=== PATIENT | female | born 1945 | race African-American/Black ===

== ENCOUNTER → 2017-01-01 | Outpatient (CLI) | payer OTHER ==
--- NOTE | 2017-01-01 17:39 | RAD ---
DATE: 01/01/2017 EXAM: DIGITAL SCREEN BILAT W/CAD HISTORY: Screening study. COMPARISON: 12/31/2015 This study was interpreted with the benefit of Computerized Aided Detection (CAD). FINDINGS: Digital MLO and CC mammograms of both breasts were obtained. Comparison study is dated 12/31/2015. The breast parenchyma is composed of scattered fibroglandular densities which can obscure a lesion on mammography (breast density code B). No spiculated mass is seen. No malignant appearing calcification or area of architectural distortion is noted. Benign-appearing calcifications are seen in both breasts. Since the previous examination there has been no significant interval change. IMPRESSION: BI-RADS Category 1, negative. There is no mammographic evidence of malignancy. Routine yearly screening mammography is recommended for follow-up. BI-RADS CATEGORY: 1 NEGATIVE RECOMMENDED FOLLOW-UP: 12M 12 MONTH FOLLOW-UP PQRS compliance statement: Patient information was entered into a reminder system with a target due date 01/01/2018 for the next mammogram. Mammography is a sensitive method for finding small breast cancers, but it does not detect them all and is not a substitute for careful clinical examination. A negative mammogram does not negate a clinically suspicious finding and should not result in delay in biopsying a clinically suspicious abnormality. "Our facility is accredited by the [employer] Mammography [employer]."
== END | disposition home or self-care (01) ==
LOC: MAMMO 10:15
PROVIDERS: ATTEND Internal Medicine
DX: Z12.31 Encounter for screening mammogram for malignant neoplasm of breast (principal)
CPT/HCPCS: G0202; 77067

== ENCOUNTER → 2018-01-10 | Outpatient (CLI) | payer OTHER | END | disposition home or self-care (01) | LOC: MAMMO 09:30 | DX: Z12.31 Encounter for screening mammogram for malignant neoplasm of breast (principal) | CPT/HCPCS: 77063; 77067 ==

== ENCOUNTER → 2018-03-04 | Outpatient (CLI) | payer OTHER ==
--- NOTE | 2018-03-04 13:02 | KCIC ---
03/04/2018 Ankle brachial indices. Bilateral lower extremity arterial duplex ultrasound INDICATION: Claudication, hypertension, right lower extremity paresthesias. COMPARISON STUDY: None FINDINGS: Blood pressure measurements were obtained. The brachial arteries and ankles bilaterally. Right brachial pressure: 145 mmHg Left brachial pressure: 133 mmHg Right ankle pressure: 144 mmHg Left ankle pressure: 149 mmHg Right ankle brachial index: 0.99 (normal) Left ankle-brachial index: 1.02 (normal) Sonographic evaluation of bilateral lower extremity major arteries is performed including color Doppler imaging spectral analysis. Minimal nonspecific blunting of waveforms is seen throughout the exam. No focal elevation of velocity suggestive of a high-grade hemodynamically significant stenosis is identified involving either lower [place]. No high-grade stenoses are identified on color Doppler imaging. IMPRESSION: 1. Normal ankle-brachial indices 2. No definitive sonographic evidence of hemodynamically significant stenosis involving the major arteries of the bilateral lower extremities Electronically signed by: Sukhwinder Fajardo MD (03/04/2018 12:58 PM) [id number]
== END | disposition home or self-care (01) ==
LOC: KCIC US 09:53
PROVIDERS: ATTEND Internal Medicine
DX: I73.9 Peripheral vascular disease, unspecified (principal); I10 Essential (primary) hypertension; R20.2 Paresthesia of skin
CPT/HCPCS: 93922; 93925

== ENCOUNTER → 2019-01-13 | Outpatient (CLI) | payer OTHER ==
--- NOTE | 2019-01-15 09:12 | RAD ---
DATE: 01/13/2019 12:30 PM EXAM: MAMMO YAZAN SCREENING BILATERAL HISTORY: routine screening evaluation. COMPARISON: 11/28/2013 Bilateral CC and MLO views of the breasts were performed. Bilateral breast tomosynthesis was performed in CC and MLO projections. This study was interpreted with the benefit of Computerized Aided Detection (CAD). Breast Density: The breast parenchyma shows scattered fibroglandular densities. Breast parenchyma level B. FINDINGS: Benign calcifications are present. The parenchymal pattern appears stable. No suspicious masses, microcalcifications or architectural distortion is present to suggest malignancy in either breast. The visualized axillae are unremarkable. IMPRESSION: No mammographic evidence of malignancy. BI-RADS CATEGORY: 2 BENIGN FINDING(S) RECOMMENDED FOLLOW-UP: 12M 12 MONTH FOLLOW-UP Annual screening mammography is recommended, unless clinically indicated sooner based on symptoms or change in physical exam. PQRS compliance statement: Patient information was entered into a reminder system with a target due date 01/15/2020 for the next mammogram. Mammography is a sensitive method for finding small breast cancers, but it does not detect them all and is not a substitute for careful clinical examination. A negative mammogram does not negate a clinically suspicious finding and should not result in delay in biopsying a clinically suspicious abnormality. "Our facility is accredited by the [employer] Mammography [employer]." DEYSID
== END | disposition home or self-care (01) ==
LOC: MAMMO 12:15
PROVIDERS: ATTEND Internal Medicine
DX: Z12.31 Encounter for screening mammogram for malignant neoplasm of breast (principal); N64.89 Other specified disorders of breast
CPT/HCPCS: 77063; 77067

== ENCOUNTER → 2020-01-20 | Outpatient (CLI) | payer MEDICARE ==
--- NOTE | 2020-01-21 14:32 | RAD ---
BILATERAL SCREENING MAMMOGRAM, 3-D History: Routine screening. Comparison: 01/13/2019, 01/11/2016, 01/01/2017, 12/31/2015 Technique: MLO and CC digital tomosynthesis (3D) images obtained. Radiologist reviewed these images on dedicated workstation. Findings: Breast Tissue Density B : There are scattered areas of fibroglandular density. There are no dominant masses, suspicious microcalcifications, or architectural distortion. IMPRESSION: No mammographic evidence of malignancy. Recommend routine screening. BI-RADS category 1: Negative. The images were reviewed with computer-aided detection. Patient information is entered into reminder system with a target due date for the next screening mammogram. Mammography is the most sensitive method for finding small breast cancers, but it does not detect them all and is not a substitute for careful clinical examination. A negative mammogram does not negate a clinically suspicious finding and should not result in delay in biopsying a clinically suspicious abnormality. "Our facility is accredited by the [employer]ammography [employer]." Electronically signed by: Calixto Hazel MD (01/21/2020 2:29 PM) [email or web address]
== END | disposition home or self-care (01) ==
LOC: MAMMO 14:12
PROVIDERS: ATTEND Internal Medicine
DX: Z12.31 Encounter for screening mammogram for malignant neoplasm of breast (principal)
CPT/HCPCS: 77063; 77067

== ENCOUNTER → 2020-12-24 | Outpatient (CLI) | payer MEDICARE ==
[~2020-12-24] MED LIST: AMLO-309 PO; CHLO25TA10 PO; EZET10TA20 PO; FAMO20TA5 PO; FLUT100D2 IH; POTA20TA4 PO
--- NOTE | 2020-12-24 12:23 | PDOC1 ---
INITIAL PAIN CONSULT DATE OF SERVICE: DOS: DATE: 12/24/20 TIME: 12:15 CHIEF COMPLAINT: Chief Complaint: Low back and right lower extremity pain HISTORY OF PRESENT ILLNESS: 75-year-old female presents with history of pain low back right lower extremity for 2 to 3 years not the result of any specific injury or accident that she is aware of, but is been getting worse with time walking and standing especially changing positions worse with standing still or changing positions from bending to stooping or standing up from a chair or getting out of bed in the morning patient reports is worse in the morning generally does not wake her from sleep at night does not affect her bowel bladder control but does affect her ability walk fairly significantly patient has a cane which she is caring with her as she feels unstable but normally does not use it until the last month or so. Patient reports that the pain is intermittent intensity worse with walking standing radiating across the low back into the posterior gluteus on the right lateral lateral thigh right medial lower leg into the ankle and foot into the great toe on the right side as well. Patient describes as numbness and tingling feeling cold and hot and aching in the leg as well as stabbing and throbbing in the low back. Patient rates her disability rating 0-10 10 being worst is a 9 with family home responsibilities 7 with recreation 8 with social activity occupational activities as well as life support activities 1 with self-care activities. Patient has been doing physical therapy at [facility] since October and reports that it does help but is not decreasing the pain significantly patient is still doing the stretching strength exercises from the physical therapy as well. Patient is taking Tylenol [id number] as well as Motrin alternating this which both do decrease the pain but only by about 20 to 30%. Patient reports no loss of motor function with significant fatigability of the right lower extremity and weakness in the right leg prompting her to use her cane as she is afraid of falling. PAST MEDICAL HISTORY: PMH: Arthritis, hypertension, dizziness, diverticulosis, hypercholesterolemia PREVIOUS SURGERIES: Past Surgical Hx: Surgery many years ago.Bilateral eye surgery 2019 for cataract extraction, knee replacement on the right 2012, hysterectomy 1979, vocal cord nodule excision, toe surgery many years ago. CURRENT MEDICATIONS: Current Meds: Active Scripts Medications Dose Route/Sig Max Daily Dose Days Date Category Flovent 100MCG Diskus (Fluticasone Propionate) 100 Mcg Disk.w.dev 1 Puff IH BID 12/24/20 Reported Famotidine 20 Mg Tablet 20 Mg PO HS 12/24/20 Reported Chlorthalidone (Chlorthalidone) 25 Mg Tablet 25 Mg PO 3X/WEEK 12/24/20 Reported Klor-Con M20 (Potassium Chloride) 20 Meq Tab.er.prt 20 Meq PO 3X/WEEK 12/24/20 Reported Amlodipine-Valsartan 5-320 mg (Amlodipine/Valsartan) 1 Each Tablet 1 Tab PO DAILY 30 12/24/20 Reported Zetia (Ezetimibe) 10 Mg Tablet 10 Mg PO HS 12/24/20 Reported ALLERGIES; Allergies: Coded Allergies: No Known Drug Allergies (Unverified , 12/24/20) FAMILY HISTORY: Family Hx: No major medical problems or conditions that she is aware of. SOCIAL HISTORY: Social Hx: Patient is not drink alcohol, does not smoke, does not use any illegal illicit or recreational drugs, is lives with her spouse lives locally in [facility], and is retired. REVIEW OF SYSTEMS: ROS: Positive for those items mentioned in history of present illness, all systems are reviewed, otherwise negative ,and are complete full and well-documented on patient's chart. PHYSICAL EXAM: VS: Blood pressure is 142/71 pulse 88 respiration 16 temperature 98.5 F height is 5 feet 2 inches weight 157 pounds PE: PHYSICAL EXAMINATION: GENERAL: The patient is awake, alert, oriented, appropriate, very pleasant demeanor HEENT: Shows normocephalic, atraumatic. Extraocular movements are intact and symmetrical. Oral cavity: Mucous membranes moist and pink. NECK: Shows anterior throat supple without palpable lymphadenopathy noted. Swallow reflex symmetrical. CHEST: Shows normal on inspection. Breath sounds are clear bilaterally, distant but no rales rhonchi or wheezes auscultated. HEART: Shows S1, S2 clear. No murmurs auscultated. ABDOMEN: Soft, nontender, nondistended, obese. No palpable organomegaly is noted. No rebound or guarding demonstrated. BACK: Shows spine grossly in the midline. Normal-appearing cervical lordotic curvature. There is slightly increased thoracic kyphosis, some minor flattening of the lumbar lordotic curvature. Lumbar paraspinous muscles show symmetrical on inspection, on palpation shows some moderate tenderness diffusely throughout the upper, middle and lower distribution of the paraspinous muscles bilaterally and also into the lower thoracic paraspinous musculature, firm and tender, but without specific trigger points, without radiation of pain. The patient has good rotational motion of the lumbar spine, both laterally as well as extension and flexion without significant difficulty. No tenderness over the spinous processes, sacrum or sacroiliac regions. EXTREMITIES: Lower extremities show deep tendon reflexes 1+ in the patellar and tendo calcaneus tendons. Motor exam is 4 on a scale of 5 with right dorsiflexion, extension, quadriceps and hamstring flexion and 5/5 on the left. Peripheral pulses are 1+ posterior tibial. No peripheral edema is noted bilaterally. Lower extremities are warm and dry to touch, equal in color and appearance. Straight leg raise noted to be positive on the right about 40 degrees, left side is negative. Gaenslen's and Dilan's maneuvers are negative bilaterally as well. The patient is able to stand, stand on her toes but that is quite unstable putting all of her weight on her right leg, patient walks with a antalgic gait favoring right lower extremity using a cane in her left hand ambulate. SKIN: Shows warm and dry, good turgor. No edema. No sores, rashes or bruising throughout. IMPRESSION: Impression: 75-year-old female with approximate 2 to 3-year history increasing pain low back and right lower extremity worse over the past few months in a radicular pattern following an L4-5 dermatomal distribution with pain in the posterior gluteus lateral thigh anterior thigh medial thigh over the right knee into the medial lower leg and into the foot and great toe, with associated weakness with ambulation and weightbearing. Arthritis Dizziness Hypertension Hypercholesterolemia Plan: Options were discussed with the patient including conservative medical management continued physical therapies and interventional techniques. As patient is been doing physical therapy for over a month now she would like to pursue interventional techniques. We discussed a lumbar epidural steroid injection using description as well as anatomical models to describe the procedure. Patient will wait for preauthorization with her insurance provider have her return for a translaminar L4-5 lumbar epidural steroid injection at that time. In the meantime patient continue with physical therapy stretching strength exercises as well as oral analgesics ibuprofen and Tylenol, as currently. GRACIE JEFFREY MD Dec 24, 2020 12:23
== END | disposition home or self-care (01) ==
LOC: PNCL 10:11
PROVIDERS: ATTEND Anesthesiology
DX: M54.5 Low back pain (principal); M79.604 Pain in right leg; M19.90 Unspecified osteoarthritis, unspecified site; I10 Essential (primary) hypertension; E78.00 Pure hypercholesterolemia, unspecified; Z90.710 Acquired absence of both cervix and uterus; Z98.890 Other specified postprocedural states; Z79.899 Other long term (current) drug therapy
CPT/HCPCS: G0463

== ENCOUNTER → 2021-01-07 | Outpatient (CLI) | payer MEDICARE ==
[~2021-01-07] MED LIST changes: +IBUP-1060 PO; +IOHEXOL 180 MG/ML 10 ML VIAL. ONE; +methylPREDNISolone ACETATE 40 MG/ML VIAL. ONE; +methylPREDNISolone ACETATE 80 MG/ML VIAL. ONE
--- NOTE | 2021-01-07 10:59 | PDOC ---
Progress Note - Pain Clinic Date of Service: DOS: DATE: 01/07/21 TIME: 10:57 Diagnosis: Dx: Lumbar radiculopathy with lumbar degenerative disc disease History or Present Illness: HPI: 75-year-old female returns follow-up status post initial evaluation preauthorization for lumbar epidural steroid injection. Patient is obtained that now would like to proceed. Patient reports still significant pain in the low back and the right lower extremity posterior gluteus posterior thigh lateral thigh anterior thigh medial thigh medial lower leg and some in the calf as well some on the left side as well in the back and the hip mostly on the right side into the leg patient reports is a 8 on scale 10 is worse over the past week 7 on average 7 at its least and is a 7 today. Patient describes pain as aching and shooting worse with walking standing on and off in intensity but always present with weightbearing patient reports occasionally wakes her from sleep but not every night. Patient reports no new motor or sensory deficits no new bowel or bladder incontinence or other complaints. Physical Exam: VS: Blood pressure is 149/82 pulse 74 respirations 16 temperature 98.4 F height is 5 foot weight is 158 pounds PE: PHYSICAL EXAMINATION: GENERAL: The patient is awake, alert, oriented, appropriate, very pleasant in demeanor. HEENT: Shows normocephalic, atraumatic. Extraocular movements are intact and symmetrical. NECK: Shows anterior throat supple without palpable lymphadenopathy noted. Swallow reflex symmetrical. CHEST: Shows normal on inspection. Breath sounds are clear bilaterally. HEART: Shows S1, S2 clear. No murmurs auscultated. ABDOMEN: Soft, nontender, nondistended, obese. BACK: Shows spine grossly in the midline. Normal-appearing cervical lordotic curvature. There is slightly increased thoracic kyphosis, some minor flattening of the lumbar lordotic curvature. Lumbar paraspinous muscles show symmetrical on inspection, on palpation shows some moderate tenderness diffusely throughout the upper, middle and lower distribution of the paraspinous muscles without specific trigger points, without radiation of pain. The patient has good rotational motion of the lumbar spine, both laterally as well as extension and flexion without significant difficulty. EXTREMITIES: Lower extremities show deep tendon reflexes 1+ in the patellar and tendo calcaneus tendons. Motor exam is 4 on a scale of 5 with right dorsiflexion, extension, quadriceps and hamstring flexion and 5/5 on the left. Peripheral pulses are 1+ posterior tibial. No peripheral edema is noted bilaterally. Lower extremities are warm and dry to touch, equal in color and appearance. SKIN: Shows warm and dry, good turgor. No edema. No sores, rashes or bruising throughout. Procedure: Procedure: Options were discussed with the patient. Patient chart reviews her current me dication regimen updated current review of systems updated today as well. We will proceed with a lumbar epidural steroid injection stable fluoroscopic guidance. Risks were discussed including but not limited to: Bleeding, infection, possibility of epidural hematoma and subsequent neurological compromise, dural puncture, headaches, spinal cord and/or nerve damage, side effects of steroid medication, and poor results regarding pain control. Patient understands and wished to proceed. Patient will return to the clinic in approximate 2 weeks for follow-up, was counseled return appointment, activity level, and side effects to be aware of. Medication Injected: Med Injected: Procedure is lumbar epidural steroid injection under local anesthetic using sterile prep and drape at the L4-5 level using C-arm fluoroscopic guidance in both AP and lateral views medications injected is 120 mg Depo-Medrol +10mL preservative-free normal saline and 2 mL contrast- condition at discharge is stable patient tolerated procedure well had no complications. Condition at Discharge: Condition at Discharge: Condition at discharge stable, patient already procedure well and had no complications. GRACIE JEFFREY MD Jan 07, 2021 10:59
--- NOTE | 2021-01-07 11:00 | PDOC4 ---
PROCEDURE Procedure Patient was consented for lumbar epidural steroid injection. Risks were dis cussed including but not limited to: Bleeding, infection, possibility of epidural hematoma and subsequent neurological compromise, dural puncture, headaches, spinal cord and/or nerve damage, side effects of steroid medication, and poor results regarding pain control. Patient understands and wished to proceed. Procedure is lumbar epidural steroid injection under local anesthetic using sterile prep and drape at the L4-5 level using C-arm fluoroscopic guidance in both AP and lateral views medications injected is 120 mg Depo-Medrol +10mL preservative-free normal saline and 2 mL contrast- condition at discharge is stable patient tolerated procedure well had no complications. GRACIE JEFFREY MD Jan 07, 2021 11:00
== END | disposition home or self-care (01) ==
LOC: PNCL 09:59
PROVIDERS: ATTEND Anesthesiology
DX: M51.16 Intervertebral disc disorders with radiculopathy, lumbar region (principal); Z79.899 Other long term (current) drug therapy; Z88.1 Allergy status to other antibiotic agents; Z88.5 Allergy status to narcotic agent; Z88.8 Allergy status to other drugs, medicaments and biological substances
CPT/HCPCS: 62323; J1030; J1040; Q9965

== ENCOUNTER → 2021-01-20 | Outpatient (CLI) | payer MEDICARE ==
[~2021-01-20] MED LIST changes: -IOHEXOL 180 MG/ML 10 ML VIAL. ONE; -methylPREDNISolone ACETATE 40 MG/ML VIAL. ONE; -methylPREDNISolone ACETATE 80 MG/ML VIAL. ONE
--- NOTE | 2021-01-20 13:43 | KCIC ---
INDICATION: Screening for osteopenia/osteoporosis. Postmenopausal evaluation. COMPARISON: None. TECHNIQUE: Bone densitometry was performed through the lumbar spine and proximal femur. IMPRESSION: Lumbar Spine: BMD: 1.1 T-Score: 0.4 Range: Normal Proximal Femur: BMD: 0.94 T-Score: 0 Range: Normal World Health Organization Criteria for Bone Density: T-Score: > -1.0: Normal Range < -1.0 to -2.5: Osteopenic Range < -2.5: Osteoporotic Range Electronically signed by: Sharif Villafuerte MD (01/20/2021 1:41 PM) [id number]
--- NOTE | 2021-01-20 15:25 | KCIC ---
Bilateral digital screening mammograms with 3-D tomosynthesis: Reason for examination: Routine screening. Comparison is made to previous studies dated back to 11/30/2014. Bilateral mammograms in CC and oblique projections were obtained with 2-D imaging and 3-D tomosynthes is imaging on a Siemens Inspiration unit and reviewed on the workstation. Interpretation was made wit h the benefit of CAD. The skin and nipples show no abnormalities. No abnormal axillary lymph nodes are seen. The breast par enchyma shows scattered fatty and fibroglandular density. (Breast density: Category B.) There continu es to be a small nodule consistent with an intramammary lymph node at the 10:00 B position of the rig ht breast. There are no new dominant masses, suspicious calcifications or architectural distortion. B enign calcifications are present and appear to be stable. Impression: No evidence of malignancy. Recommend routine screening. BI-RAD Category 2: Benign. "Our facility is accredited by the [employer] Mammography Program." This patient's information has been entered into a reminder system for the patient to be notified wit h the results of her examination and a target date for the next mammogram. Electronically signed by: Yana Linn MD (01/20/2021 3:22 PM) [id number]
== END ==
LOC: KCIC MAMMO 10:35
PROVIDERS: ATTEND Internal Medicine
DX: Z12.31 Encounter for screening mammogram for malignant neoplasm of breast (principal); M81.0 Age-related osteoporosis without current pathological fracture; M85.88 Other specified disorders of bone density and structure, other site
CPT/HCPCS: 77063; 77067; 77080